=== PATIENT | female | born 1965 | race Caucasian/White ===

== ENCOUNTER 2016-06-24 17:18 | Emergency (ER) | payer MEDICARE ==
[2016-06-24 17:24] VITALS: TEMP 98.6; BMI 30.6
--- NOTE | 2016-06-24 18:38 | EDPRACDOC ---
- General Information Chief Complaint: Abdominal Pain Stated Complaint: SIDE PAIN Time Seen by Provider: 06/24/16 18:33 Information Source: Patient Mode Of Arrival: Car Home Medications: Home Medications Amitriptyline HCl 150 mg PO HS 01/17/14 Bumetanide 0.5 mg PO BID 01/17/14 Esomeprazole Magnesium [Nexium] 40 mg PO DAILY 01/17/14 Lactulose [Constulose] 30 ml PO BID 01/17/14 Quetiapine Fumarate [Seroquel] 300 mg PO HS 01/17/14 Venlafaxine HCl ER [Effexor XR] 150 mg PO DAILY 01/17/14 Atorvastatin Calcium [Lipitor] 40 mg PO DAILY 02/24/16 Fenofibrate [Lofibra] 160 mg PO DAILY 02/24/16 Gabapentin [Neurontin] 100 mg PO TID 02/24/16 Lisinopril [Prinivil] 5 mg PO DAILY 02/24/16 Metformin HCl 500 mg PO DAILY 02/24/16 Behrc-9-Cstp Ethyl Esters [Lovaza (Merritt-3 Acid Ethyl Esters)] 2,000 mg PO BID 02/24/16 L.acidoph & Paracasei,B.lactis [Probiotic] 1 each PO DAILY #30 capsule 06/02/16 Spironolactone 25 mg PO TID 06/02/16 Cyclobenzaprine HCl [Flexeril] 10 mg PO TID PRN #20 tablet 06/24/16 Ketoprofen 50 mg PO BID PRN #20 capsule 06/24/16 Allergies/Adverse Reactions: Allergies Allergy/AdvReac Type Severity Reaction Status Date / Time No Known Allergies Allergy Verified 06/24/16 17:24 - History of Present Illness Onset: two weeks HPI: PT COMPLAINS OF RUQ ABD PAIN, R LATERAL RIB PAIN X 7-8 WEEKS, DESCRIBES PAIN SHARP AND ACHING, WORSE WITH MOVEMENT, DEEP BREATHING, TWISTING, COUGHING, BREATHING. PT HAS SEEN PCP MULTIPLE TIMES, SEEN IN ED ONCE, HAS BEEN ON MULTIPLE ABX WITHOUT RELIEF. PT STATES THAT HER PCP WANTS HER TO HAVE GBUS NOW. Pain Location: Reports: RUQ Pain Context: Reports: Spontaneous Pain Severity: Severe Pain Quality: Reports: Aching, Sharp, Stabbing Pain Radiation: Reports: Chest Last Menstrual Period: HYST : No (hyst) Adult Abdominal History: Denies: Abdominal Surgery, Urolithiasis, Bowel Obstruction, Similar Pain (dx) Female Abdominal History: Reports: Abdominal Surgery Modifying Factors: improves with: Position, Exertion, Movement Female Associated Signs & Symptoms: Denies: Nausea, Frequency, Vaginal Bleeding , Vomiting, Hematemesis, Anorexia, Diarrhea, Melena, Dysuria, Fever, Urgency, Hematuria, Chills, Vaginal Discharge Oral Intake: Normal Urinary Output: Normal ED Past Medical History - History Reviewed Yes Nurses notes reviewed and agree except as marked - Patient Medical History Cardiac History: Reports: Hypertension, Hypercholesterolemia Psychological History: Denies: Depression Systemic History: Reports: Diabetes. Denies: Cancer Surgical History: Reports: Hysterectomy, Tonsillectomy/Adnoidectomy - Family Medical History Reports: Hypertension (parents), Diabetes (mother), Cancer (father), Cardiac Disorders (parents) - Social Medical History Smoking Status: Former smoker ETOH: None Substance Abuse: None EDM Review of Systems - Review of Systems Constitutional: negative: Chills, Fever Eyes: negative: Blurred Vision, Double Vision Ears: negative: Drainage Throat: negative: Pain Nose: negative: Congestion, Discharge Respiratory: Cough, Shortness of Breath. negative: Wheezing Cardiovascular: Chest Pain. negative: Palpitations Gastrointestinal: Pain. negative: Diarrhea, Nausea, Vomiting Genitourinary: negative: Dysuria, Frequency Neurological: negative: Dizziness, Headache, Numbness, Weakness Musculoskeletal: No Symptoms Reported Integumentary: No Symptoms Reported - Physical Exam Constitutional: Alert (Awake), No apparent distress Oriented to: Time, Person, Place Last recorded Vital Signs: Last Vital Signs Temp 98.6 F 06/24/16 17:21 Pulse 92 06/24/16 18:59 Resp 18 06/24/16 18:59 BP 170/77 06/24/16 18:59 Pulse Ox 95 06/24/16 18:59 Oxygen Pulse Oxygen Saturation 95 O2 Device Room Air Oxygen Flow Rate Fraction of Inspired Oxygen ( FIO2) - HEENT Head: Normal ( normocephalic) Eye Exam: Normal (PERRL, EOMI, Sclera white) Oropharynx: Normal (Pharynx:Moist without exudate,Gums-no swelling) Tympanic Membrane: Normal ENT EAC: Normal TMJ: Normal Nose: No Symptoms Reported (septum midline) Neck: Normal (FROM, trachea at midline) - Respiratory/Cardiovascular Respiratory: Normal - CTA (BBS clear to auscultation without adventitious sounds ) Cardiovascular: Normal (RRR without murmur, gallop or rub) Respiratory/Cardiovascular Comment: RIGHT CHEST WALL: TTP, NO CREPITANCE OR SUBCUT EMPHYSEMA - GI Auscultation: Normal (NABS) Palpation: Normal (Soft,No rebound or guarding, non distended) Tenderness: Moderate, RUQ. negative: Guarding, Rebound, Rigidity Barajas's Sign: Negative - Musculoskeletal Back: Normal (Non-Tender) Extremities: Normal (Normal tone, Pulses 2+ No cyanosis or edema, FROM) - Integumentary Skin: Normal, Warm, Dry Lymphatics: Normal (no adenopathy) - Neurologic Memory Impaired: Normal Motor Function: Normal (Normal tone, Pulses 2+ No cyanosis or edema, FROM) Cranial Nerve: Normal (CN II-X11 intact sensation, strength 5/5) Cerebellar: Normal Mood Description: Normal Perception: Normal - Differential Diagnosis Cholecystitis, Cholelithiasis, Constipation, Diverticulitis, IBS, Pancreatitis, UTI - Re-evaluation Re-evaluation 1 Re-evaluation Time: 20:06 (OLD LABS REVIEWED, WBCs STABLE, BUN/CR STABLE, PT HAS HAD CXR, LABS, ALL NORMAL, HAS GBUS SCHEDULED FOR THE MORNING.) - Results 06/24/16 19:00 06/24/16 19:00 WBC 11.6 xk/uL (3.8-10.8) H 06/24/16 19:00 RBC 4.40 xM/uL (4.20-5.40) 06/24/16 19:00 Hgb 14.0 g/dL (12.0-16.0) 06/24/16 19:00 Hct 41.6 % (36-47) 06/24/16 19:00 MCV 95 fL (81-99) 06/24/16 19:00 MCH 31.8 pg (27-32) 06/24/16 19:00 MCHC 33.7 g/dl (33-36) 06/24/16 19:00 RDW 12.4 % (11.5-14.5) 06/24/16 19:00 Plt Count 314 xk/uL (130-400) 06/24/16 19:00 MPV 7.2 fL (7.4-10.4) L 06/24/16 19:00 Neut % (Auto) 53.7 % (45-76) 06/24/16 19:00 Lymph % (Auto) 33.4 % (17-44) 06/24/16 19:00 Talbot % (Auto) 8.3 % (3-10) 06/24/16 19:00 Eos % (Auto) 3.7 % (0-5) 06/24/16 19:00 Baso % (Auto) 0.9 % (0-2) 06/24/16 19:00 Absolute Neuts (auto) 6.15 xk/uL (1.7-8.2) 06/24/16 19:00 Absolute Lymphs (auto) 3.83 xk/uL (0.65-4.75) 06/24/16 19:00 PT 10.8 SEC (9.2-11.2) 06/24/16 19:00 INR 1.1 06/24/16 19:00 APTT 32.0 SEC (22-35) 06/24/16 19:00 D-Dimer Quant (PE/DVT) 317 ng/mL (<500) 06/24/16 19:00 Sodium 137 mEq/L (137-146) 06/24/16 19:00 Potassium 4.9 mEq/L (3.5-5.1) 06/24/16 19:00 Chloride 100 mEq/L (98-107) 06/24/16 19:00 Carbon Dioxide 25 mMOL/L (22-33) 06/24/16 19:00 Anion Gap 17 mEq/L (8-16) H 06/24/16 19:00 BUN 45 MG/DL (7-17) H 06/24/16 19:00 Creatinine 1.50 MG/DL (0.52-1.04) H 06/24/16 19:00 Estimated GFR (MDRD) 37 mL/min (>=60) L 06/24/16 19:00 Glucose 90 MG/DL (70-99) 06/24/16 19:00 Calculated Osmolality 276 MOs/Kg (270-290) 06/24/16 19:00 Calcium 10.7 MG/DL (8.4-10.2) H 06/24/16 19:00 Total Bilirubin 0.4 MG/DL (0.2-1.3) 06/24/16 19:00 AST 33 IU/L (14-36) 06/24/16 19:00 ALT 35 IU/L (9-52) 06/24/16 19:00 Alkaline Phosphatase 105 IU/L (38-126) 06/24/16 19:00 Troponin I < 0.01 ng/mL (<.04) 06/24/16 19:00 Total Protein 8.1 G/DL (6.3-8.2) 06/24/16 19:00 Albumin 4.8 G/DL (3.5-5.0) 06/24/16 19:00 Lipase 136 U/L (23-300) 06/24/16 19:00 Lab Results 06/24/16 06/24/16 06/24/16 19:00 19:00 19:00 WBC 11.6 H RBC 4.40 Hgb 14.0 Hct 41.6 MCV 95 MCH 31.8 MCHC 33.7 RDW 12.4 Plt Count 314 MPV 7.2 L Neut % (Auto) 53.7 Lymph % (Auto) 33.4 Talbot % (Auto) 8.3 Eos % (Auto) 3.7 Baso % (Auto) 0.9 Absolute Neuts (auto) 6.15 Absolute Lymphs (auto) 3.83 PT 10.8 INR 1.1 APTT 32.0 D-Dimer Quant (PE/DVT) 317 Sodium Potassium Chloride Carbon Dioxide Anion Gap BUN Creatinine Estimated GFR (MDRD) Glucose Calculated Osmolality Calcium Total Bilirubin AST ALT Alkaline Phosphatase Troponin I Total Protein Albumin Lipase 06/24/16 19:00 WBC RBC Hgb Hct MCV MCH MCHC RDW Plt Count MPV Neut % (Auto) Lymph % (Auto) Talbot % (Auto) Eos % (Auto) Baso % (Auto) Absolute Neuts (auto) Absolute Lymphs (auto) PT INR APTT D-Dimer Quant (PE/DVT) Sodium 137 Potassium 4.9 Chloride 100 Carbon Dioxide 25 Anion Gap 17 H BUN 45 H Creatinine 1.50 H Estimated GFR (MDRD) 37 L Glucose 90 Calculated Osmolality 276 Calcium 10.7 H Total Bilirubin 0.4 AST 33 ALT 35 Alkaline Phosphatase 105 Troponin I < 0.01 Total Protein 8.1 Albumin 4.8 Lipase 136 - EKG EKG #1 EKG Time: 18:53 -: Yes EKG interpreted by me Rate: bpm: 84 Wells: Normal Rhythm: NSR Block: None Hypertrophy: None ST: Normal Comparison: 06/02/16 (NO CHANGE) Decision Time to Discharge: 20:13 - Departure Disposition: Home Condition: Stable Final Diagnosis: Chest wall pain Instructions: Chest Wall Pain Education/Counseling Given To: Patient Education/Counseling Given Regarding: Diagnosis, Treatment, Prognosis, Follow Up Referrals: Mirian Alejandra NP [Primary Care Provider] - One Week Prescriptions: Cyclobenzaprine HCl [Flexeril] 10 mg PO TID PRN #20 tablet PRN Reason: Muscle Spasms Ketoprofen 50 mg PO BID PRN #20 capsule PRN Reason: Pain Additional Instructions: FOLLOW UP TOMORROW FOR GALLBLADDER ULTRASOUND, RETURN TO THE ED FOR ANY WORSENING SYMPTOMS OR CONCERNS.
[2016-06-24] MEDS ORDERED: KETOROLAC TROMETH 30 MG/ML VIAL IV ONE (18:40)
[2016-06-24] MEDS ORDERED: NS 1,000 ML IV ONE (18:40)
[2016-06-24 19:01] VITALS: PULSE 92
[2016-06-24 19:21] LABS: AUTOMATED BASOPHIL 0.9 % (0-2); AUTOMATED EOSINOPHIL 3.7 % (0-5); AUTOMATED LYMPH 33.4 % (17-44); AUTOMATED MONOCYTE 8.3 % (3-10); AUTOMATED NEUTROPHIL 53.7 % (45-76); MPV 7.2 fL (7.4-10.4)
[2016-06-24 19:31] LABS: BLOOD UREA NITROGEN 45 MG/DL (7-17); CALCIUM 10.7 MG/DL (8.4-10.2); CALCULATED OSMOLALITY 276 MOs/Kg (270-290); CHLORIDE 100 mEq/L (98-107); GLUCOSE 90 MG/DL (70-99); SODIUM LEVEL 137 mEq/L (137-146); TOTAL PROTEIN 8.1 G/DL (6.3-8.2)
[2016-06-24 19:32] LABS: PT-INR 1.1
[2016-06-24 20:43] VITALS: BP 127/66
== END 2016-06-24 20:39 | disposition home or self-care (01) ==
LOC: ED 17:18
DX: R07.89 Other chest pain (principal); I10 Essential (primary) hypertension; E11.9 Type 2 diabetes mellitus without complications; E78.00 Pure hypercholesterolemia, unspecified; Z79.899 Other long term (current) drug therapy
CPT/HCPCS: 36415; 80053; 83690; 84484; 85025; 85379; 85610; 85730; 93005; 96361; 96374; 99283; J1885